=== PATIENT | female | born 1960 | race Caucasian/White ===

== ENCOUNTER 2018-08-22 10:57 | Day surgery (SDC) | payer MEDICARE ==
[~2018-08-22 10:57] MED LIST: Acetaminophen TAB* 325 MG PO ONE; Buffered Lidocaine 1% SYRIN* 1 ML/SYRINGE INTRADERM ONE; Gabapentin CAP(*) 300 MG PO ONE; Lactated Ringers 1000 ML Bag* 1,000 ML IV SCH
[2018-08-22] MEDS ORDERED: Buffered Lidocaine 1% SYRIN* 1 ML/SYRINGE INTRADERM ONE (12:34)
[2018-08-22] MEDS ORDERED: Clindamycin 900 MG IVPREMIX(* 900 MG/50 ML SDV IV ONE (12:34)
[2018-08-22] MEDS ORDERED: Gabapentin CAP(*) 300 MG ONE (12:34)
[2018-08-22] MEDS ORDERED: Acetaminophen TAB* 325 MG ONE (12:34)
[2018-08-22] MEDS ORDERED: diPHENhydraMINE IV* 50 MG/ML 1 ml VIAL (BENADRYL) IV PRN (13:41)
[2018-08-22] MEDS ORDERED: Levalbuterol 0.63MG/3ML NEB* UNIT OF USE INH PRN (13:41)
[2018-08-22] MEDS ORDERED: HYDROmorphone INJ1* 1 MG/ML SYRINGE IV PRN (13:41)
[2018-08-22] MEDS ORDERED: oxyCODONE TAB* 5 MG TAB PO PRN (13:41)
[2018-08-22] MEDS ORDERED: Naloxone* 0.4 MG/ML 1 ML VIAL IV PRN (13:41)
[2018-08-22] MEDS ORDERED: fentaNYL* 50 MCG/ML 2 ML VIAL (100 MCG VIAL) IV PRN (13:41)
[2018-08-22] MEDS ORDERED: Ondansetron INJ* 2 MG/ML VIAL IV PRN (13:41)
[2018-08-22] MEDS ORDERED: Acetaminophen TAB* 325 MG PO PRN (13:41)
[2018-08-22] MEDS ORDERED: DiMENhydriNATE IV* 50 MG/ML VIAL IV PUSH PRN (13:41)
[2018-08-22] MEDS ORDERED: Midazolam* 1 MG/ML 2 ML VIAL (2 MG) ONE (13:49)
[2018-08-22] MEDS ORDERED: fentaNYL* 50 MCG/ML 2 ML VIAL (100 MCG VIAL) ONE ×2 (13:49→16:08)
[2018-08-22] MEDS ORDERED: Bupivacaine 0.25% SDV PF* 10 ML VIAL INJ ONE (14:29)
[2018-08-22] MEDS ORDERED: Famotidine IV* 10 MG/ML 2 ML (20 mg) ONE (14:37)
[2018-08-22] MEDS ORDERED: Ropivacaine (OR use only) 2 MG/ML 10 ML ONE (14:38)
[2018-08-22] MEDS ORDERED: Lidocaine 2% PF * 5 ML VIAL ONE (15:39)
[2018-08-22] MEDS ORDERED: Ketorolac INJ* 30 MG/ML 1 ML VIAL ONE (15:40)
[2018-08-22] MEDS ORDERED: Dexamethasone IV* 4 MG/ML 1 ML (4 MG) ONE (15:40)
[2018-08-22] MEDS ORDERED: Ondansetron INJ* 2 MG/ML VIAL ONE (15:40)
[2018-08-22] MEDS ORDERED: Propofol* 10 MG/ML 20 ML BTL ONE (15:40)
[2018-08-22] MEDS ORDERED: EPHEDrine (Pressors)* 50 MG/ML VIAL ONE (15:53)
[2018-08-22] MEDS ORDERED: ROPIVACAINE 5 MG/ML 30 ML BTL (0.5%) ONE (16:50)
[2018-08-22] MEDS ORDERED: Metoprolol Tartrate IV* 1 MG/ML 5 ML VIAL ONE (17:03)
[2018-08-22] MEDS ORDERED: oxyCODONE/Acetamin 5/325 MG* TAB ONE (18:20)
[2018-08-22] MEDS: oxyCODONE/Acetamin 5/325 MG* TAB PO PRN ×2 (18:21→18:22)
[2018-08-22 19:02] VITALS: BP 118/61
--- NOTE | 2018-08-22 19:02 | OP ---
Operative Report - Blank - Operative Report Date of Operation: 08/22/18 Note: PATIENT: Rabia Malave DATE OF : 1960 DATE OF SURGERY: 08/22/2018 SURGEON: Joe Rueda MD HYDRAUL[employer] RUBB[employer]PA[employer] MECHANIC: MARK Guy, whos assistance was necessary for positioning, retraction, help with instrumentation, and closure. ANESTHESIOLOGIST: Dr. Andrade PREOPERATIVE DIAGNOSIS: Left foot Lisfranc injury with 1st and 2nd TMT joint dislocation, medial cuneiform fracture and 2nd and 4th metatarsal fractures. POSTOPERATIVE DIAGNOSIS: Left foot Lisfranc injury with 1st and 2nd TMT joint dislocation, medial cuneiform fracture and 2nd and 4th metatarsal fractures. OPERATION: Left foot open reduction and internal fixation of the 1st and 2nd TMT joints Left foot open reduction and internal fixation of the 2nd metatarsal base fractures Left foot open reduction and internal fixation of the medial cuneiform fracture Left foot closed treatment of the 4th metatarsal fracture ANESTHESIA: General IMPLANTS: Ar[employer]rex CFS set plate and screws TOURNIQUET TIME: Less than 2 hours with a well padded thigh tourniquet at 250 mmHg SPECIMENS: none ESTIMATED BLOOD LOSS: minimal COMPLICATIONS: none STATUS: Stable from the operating room to the recovery room and then home. INDICATIONS FOR PROCEDURE: Rabia fell down a couple of stairs, sustaining left foot Lisfranc fracture- dislocations. Both operative and non operative treatment alternatives were reviewed. We also discussed both open reduction and internal fixation versus fusion. She preferred open reduction and internal fixation if possible. The nature and risks of surgery were reviewed in careful detail, in the office as well as the pre-operative holding area. Our discussions regarding the risks of surgery included, but were not limited to, infection, wound problems, nerve injury, neuroma, RSD, persistent symptoms, blood clot, fracture, post-traumatic arthritis, hardware pain, need for further surgery, malunion, nonunion, persistent midfoot instability, failure of the surgery, and even the remote chance of catastrophic complication, including loss of limb. DESCRIPTION OF PROCEDURE: The patient was seen in the preoperative holding unit and informed written consent was obtained. The appropriate extremity was marked. The patient was then brought to the operating room and carefully positioned on the operating room table. Anesthesia was induced. All bony prominences were padded with great care. A chlorhexidine based pre-scrub was performed followed by a chloraprep prep and drape in standard sterile fashion. A surgical safety pause was then conducted in which we confirmed the appropriate patient, extremity, planned procedure, availability of equipment, indication and administration of prophylactic antibiotics, and DVT prophylaxis in the form of a compression boot on the non-surgical extremity. We began with an Esmarch exsanguination of limb and inflated the tourniquet. I utilized a longitudinal incision centered at the base of the first and second metatarsals. I carefully dissected down through the soft tissues with great care taken to protect the superficial and deep neurovascular structures. The deep neurovascular bundle was visualized and carefully protected throughout the procedure. I then exposed the first and second tarsometatarsal joints, both of which were subluxated and grossly unstable. I also exposed the fracture at the medial cuneiforms, as well as the fractures at the base of the 2nd metatarsal and cleaned out the fracture hematoma. This resulted in a nice visualization of the joints. Overall, the articular cartilage appeared in good condition. The first TMT joint was manually reduced and a 0.062 K-wire was used to hold the joint provisionally reduced. Fluoroscopy was used to confirm a good reduction. A plate was then chosen and contoured to fit the dorsomedial aspect of the first TMT joint and medial column. This was held provisionally with olive wires and then screws were placed into the first metatarsal and medial cuneiform. The provisional fixation was then removed and the joint was held well reduced. This was confirmed fluoroscopically. All of the screws had excellent purchase. I then turned my attention to the second metatarsal base fractures. These were reduced, as well as the second TMT joint, and held provisionally with K wires. A spanning plate was then placed on the dorsum of the second metatarsal and middle cuneiform. Screws were placed to hold the plate to the bone. This held the fractures and second TMT joint well reduced. The provisional K wires were removed. Then turned my attention to the medial cuneiforms fracture and Lisfranc interval. These were reduced and held with a pointed reduction clamp. Then a guidewire for a 4.0 mm cannulated screw was placed across the Lisfranc interval from the medial cuneiform to the second metatarsal base. This was measured, overdrilled, and a screw was placed. The pointed reduction clamp was removed and the fracture and Lisfranc interval were held well reduced. Fluoroscopy was then used to image the fourth metatarsal base fracture, which appeared well reduced and without any correlated joint instability. Therefore, I decided to treat the fourth metatarsal base fracture in a closed manner. The third TMT joint was also well reduced on fluoroscopy. Final fluoroscopic images were obtained. At this point, we irrigated copiously and then closed in layers meticulously utilizing 3-0 Monocryl and 3-0 nylon for the skin. A sterile dressing was then applied followed by a splint with the ankle in a neutral position. The patient was then awakened from anesthesia and transferred to the recovery room in stable condition. There were no complications. All needle and sponge counts were correct at the end of the case. ATTESTATION: I attest I was present and scrubbed and performed the critical portions of the procedure myself. POSTOPERATIVE PLAN: Follow up will be in 2 weeks for likely suture removal and postop x-rays. The postoperative plan is to be [id number] for 2 months , then weight-bearing as tolerated in a boot between months 2-3, and then into regular shoes at 3 months postop.
== END 2018-08-22 19:05 | disposition home or self-care (01) ==
LOC: OR 10:57
PROVIDERS: ATTEND Orthopaedic Surgery
DX: S92.322A Displaced fracture of second metatarsal bone, left foot, initial encounter for closed fracture (principal); S93.325A Dislocation of tarsometatarsal joint of left foot, initial encounter; S92.342A Displaced fracture of fourth metatarsal bone, left foot, initial encounter for closed fracture; S92.242A Displaced fracture of medial cuneiform of left foot, initial encounter for closed fracture; F17.210 Nicotine dependence, cigarettes, uncomplicated; W10.8XXA Fall (on) (from) other stairs and steps, initial encounter; Y92.009 Unspecified place in unspecified non-institutional (private) residence as the place of occurrence of the external cause
CPT/HCPCS: A9270-GY; C1713; C1776; J1100; J1885; J2250; J2405; J2704; J2795; J3010; J3490